=== PATIENT | female | born 1955 | race Caucasian/White ===

== ENCOUNTER 2019-12-04 12:30 | Outpatient (CLI) | payer MEDICARE, OTHER ==
[2019-12-04 12:47] LABS: HGB - HEMOGLOBIN 12.4 g/dL (12.0-16.0)
== END 2019-12-04 12:31 | disposition home or self-care (01) ==
LOC: LAB 12:30
PROVIDERS: ATTEND Family Medicine
DX: D64.9 Anemia, unspecified (principal)
CPT/HCPCS: 36415; 85014; 85018